=== PATIENT | female | born 1965 | race Caucasian/White ===

== ENCOUNTER 2021-02-18 11:28 | Inpatient (IN) ==
[2021-02-18] MEDS ORDERED: Ondansetron ODT 4 mg TAB 4 MG TAB SL PRN (11:57)
[2021-02-18] MEDS ORDERED: Morphine 4 MG/ML VIAL (1 ml) IV ONE (13:46)
[2021-02-18] MEDS ORDERED: NS 0.9% 1000 ml BAG 1,000 ML IV ONE ×3 (13:46→22:23)
[2021-02-18 14:08] LABS: ABS Monocytes 0.8 10^3/ul (0-0.8); ABS Neutrophils 17.7 10^3/ul (1.5-7.7); Hematocrit 46 % (35-47); Hemoglobin 15.8 g/dL (12.0-16.0); Lymphocyte % 5.1 %; Mean Corpuscular HGB Conc 35 g/dL (31-36); Mean Corpuscular Hemoglobin 30 pg (27-31); Mean Corpuscular Volume 88 fL (80-97); Mean Platelet Volume 9.3 fL (7.4-10.4); Platelet Count 197 10^3/uL (150-450); Red Blood Count 5.19 10^6 /uL (3.70-4.87); Red Cell Distribution Width 12 % (10-15); White Blood Count 19.6 10^3/uL (3.5-10.8)
[2021-02-18 14:24] LABS: Albumin 4.1 g/dL (3.2-5.2); Albumin/Globulin Ratio 1.3 (1-3); C Reactive Protein 68.72 mg/L (<8.01); Calcium 9.7 mg/dL (8.6-10.3); EGFR African American 83.2 (>60); EGFR Non-African American 68.8 (>60); Globulin 3.1 g/dL (2-4); Potassium 3.9 mmol/L (3.5-5.0); Total Bilirubin 0.5 mg/dL (0.2-1.0); Total Protein 7.2 g/dL (6.4-8.9)
[2021-02-18] MEDS ORDERED: Iohexol 300 (CONTRAST) 10 ML SDV IV ONE (14:31)
[2021-02-18] MEDS ORDERED: Ondansetron 4 mg VIAL 2 MG/ML 2 ml VIAL IV ONE (14:33)
[2021-02-18] MEDS ORDERED: Piperacillin/Tazobac ADVAN 3.375 GM in NS 0.9% 100 ml BAG 100 ML IV ONE (15:34)
[2021-02-18] MEDS ORDERED: Propofol 10 MG/ML 20 ML BTL ONE ×2 (16:56→18:48)
[2021-02-18] MEDS ORDERED: fentaNYL 100 mcg/2 ml 50 MCG/ML VIAL ONE (16:56)
[2021-02-18] MEDS ORDERED: Rocuronium 50 mg VIAL 10 mg/ml 5 ml VIAL (50 mg) ONE ×2 (16:59→19:14)
[2021-02-18] MEDS ORDERED: Ondansetron 4 mg VIAL 2 MG/ML 2 ml VIAL IV PRN (17:33)
[2021-02-18] MEDS ORDERED: oxyCODONE/Acetamin 5/325 mg TAB PO PRN (17:33)
[2021-02-18] MEDS ORDERED: HYDROmorphone 1 MG/1 ML SYRINGE IV SLOW PU PRN (17:33)
[2021-02-18] MEDS ORDERED: ceFAZolin 2 GM PREMIX 2 GM/50 ML BAG ONE (18:08)
[2021-02-18] MEDS ORDERED: Bupivacaine 0.25% SDV 30 ML ONE (18:45)
[2021-02-18] MEDS ORDERED: Midazolam 5 mg/5 ml VIAL 1 mg/ml 5 ml VIAL (5 mg) ONE (18:49)
[2021-02-18] MEDS ORDERED: Dexamethasone IV 4 MG/ML VIAL 1 ml VIAL ONE (18:52)
[2021-02-18] MEDS ORDERED: Ondansetron 4 mg VIAL 2 MG/ML 2 ml VIAL ONE (18:52)
[2021-02-18] MEDS ORDERED: HYDROmorphone 1 MG/1 ML SYRINGE ONE (19:23)
[2021-02-18] MEDS ORDERED: Acetaminophen IV 1 GM/100ML 100 ML IV ONE (19:26)
[2021-02-18] MEDS ORDERED: Naloxone 0.4 mg VIAL 0.4 mg/ml 1 ml VIAL IV PRN (19:31)
[2021-02-18] MEDS ORDERED: DiMENhydriNATE IV 50 mg/ml 1 ml VIAL IV PUSH PRN (19:31)
[2021-02-18] MEDS ORDERED: diPHENhydraMINE IV 50 MG/ML 1 ml VIAL (BENADRYL) IV PRN (19:31)
[2021-02-18] MEDS ORDERED: fentaNYL 100 mcg/2 ml 50 MCG/ML VIAL IV PRN (19:31)
[2021-02-18] MEDS: NS 0.9% 1000 ml BAG 1,000 ML IV SCH (21:19)
[2021-02-18] MEDS: Piperacillin/Tazobac ADVAN 3.375 GM in NS 0.9% 100 ml BAG 100 ML IV SCH (22:02)
[2021-02-18 22:12] LABS: ABS Lymphocytes 0.3 10^3/ul (1.0-4.8); ABS Monocytes 0.3 10^3/ul (0-0.8); ABS Neutrophils 14.4 10^3/ul (1.5-7.7); Hematocrit 37 % (35-47); Hemoglobin 12.5 g/dL (12.0-16.0); Lymphocyte % 2.2 %; Mean Corpuscular HGB Conc 34 g/dL (31-36); Mean Corpuscular Hemoglobin 30 pg (27-31); Mean Corpuscular Volume 88 fL (80-97); Mean Platelet Volume 8.3 fL (7.4-10.4); Platelet Count 130 10^3/uL (150-450); Red Cell Distribution Width 13 % (10-15)
[2021-02-18 22:28] LABS: Calcium 7.7 mg/dL (8.6-10.3); EGFR African American 71.6 (>60); EGFR Non-African American 59.1 (>60); Potassium 3.3 mmol/L (3.5-5.0)
[2021-02-18] MEDS ORDERED: Potassium Chlor 20 meq TAB.ER PO ONE (22:37)
[2021-02-18 23:00] LABS: Albumin 2.8 g/dL (3.2-5.2)
[2021-02-18] MEDS: Clindamycin 900 MG/D5W BAG 900 MG/50 ML BAG IVPB SCH (23:07)
[2021-02-19] MEDS ORDERED: NS 0.9% 1000 ml BAG 1,000 ML IV ONE (01:47)
[2021-02-19] MEDS: Potassium Chlor 20 meq TAB.ER PO SCH ×2 (01:59→04:53)
[2021-02-19 02:40] LABS: Urine Appearance Clear; Urine Bilirubin Negative (Negative); Urine Blood Negative (Negative); Urine Color Amber; Urine Glucose Negative (Negative); Urine Ketones Negative (Negative); Urine Nitrite Negative (Negative); Urine Protein Negative (Negative); Urine Specific Gravity 1.038 (1.002-1.030); Urine Urobilinogen Negative (Negative)
[2021-02-19] MEDS: Piperacillin/Tazobac ADVAN 3.375 GM in NS 0.9% 100 ml BAG 100 ML IV SCH ×2 (04:52→11:53)
[2021-02-19] MEDS: Clindamycin 900 MG/D5W BAG 900 MG/50 ML BAG IVPB SCH (07:49)
[2021-02-19] MEDS: NS 0.9% 1000 ml BAG 1,000 ML IV SCH (11:18)
[2021-02-19 11:27] VITALS: BP 103/65
[2021-02-19] MEDS ORDERED: NF: Mirabegron 50 mg ER TAB (NF) PO SCH (12:00)
[2021-02-19] MEDS ORDERED: PTO: Mirabegron 50 mg ER TAB (NF) PO SCH (13:00)
== END 2021-02-19 14:15 | disposition home or self-care (01) | DRG 710 ==
LOC: ED 11:28 → SSU 17:52
PROVIDERS: ADMIT Surgery; ATTEND Surgery